=== PATIENT | male | born 1980 | race Native Hawaiian/Other Pacific Islander ===

== ENCOUNTER 2019-03-25 15:33 | Emergency (ER) | payer OTHER ==
[~2019-03-25] VITALS: Ht 172.7 cm; Wt 113.4 kg
[2019-03-25 15:33] VITALS: TEMP 98.2
[2019-03-25 16:30] LABS: PLATELET COUNT 204 K/uL (142-355)
[2019-03-25 16:31] LABS: POTASSIUM 3.5 mmol/L (3.6-5.2); SODIUM 141 mmol/L (136-145)
[2019-03-25 19:02] LABS: PARTIAL THROMBOPLASTIN TIME 23.6 SECONDS (24.5-33.6)
[2019-03-25 20:13] VITALS: BP 139/93
== END 2019-03-25 20:13 | disposition short-term general hospital (02) ==
LOC: ED 15:41
PROVIDERS: Family Medicine
DX: R07.89 Other chest pain (principal); I10 Essential (primary) hypertension
CPT/HCPCS: 36415; 80053; 82550; 84484; 85027; 85610; 85730; 93005; 96365; 99285; J1644

== ENCOUNTER 2019-03-25 20:20 | Outpatient (CLI) | payer OTHER | END 2019-03-25 21:07 | disposition short-term general hospital (02) | LOC: AMB 20:20 | DX: R07.89 Other chest pain (principal); R68.84 Jaw pain; R20.0 Anesthesia of skin | CPT/HCPCS: A0425; A0427 ==